=== PATIENT | male | born 1975 | race Caucasian/White ===

== ENCOUNTER 2020-01-20 18:36 | Emergency (ER) | payer SELFPAY ==
[2020-01-20 18:45] VITALS: BP 132/92; PULSE 77; RESP 16; TEMP 36.3; O2SAT 97; BMI 35.3
--- NOTE | 2020-01-20 19:04 | XRR_ITS ---
PROCEDURE INFORMATION: Exam: XR Right Hand Exam date and time: 01/20/2020 7:48 PM Age: 44 years old Clinical indication: Injury or trauma; Fall; Blunt trauma (contusions or hematomas); Hand; Right TECHNIQUE: Imaging protocol: XR Right hand. Views: 3 or more views. COMPARISON: No relevant prior studies available. FINDINGS: Bones/joints: osseous structures of the hand are without an acute process. Distal radioulnar joint and radiocarpal joints grossly normal. Carpus without fracture. Metacarpals and phalangeal without fracture or dislocation. No erosive changes or periarticular calcifications. Corticated ossific density at the base of the 5th metacarpal. 5 mm. Mild degenerative changes 1st metacarpophalangeal joint Soft tissues: See Bones/joints finding. XR/XR hand RT min 3V* [id number] IMPRESSION: No acute process.
--- NOTE | 2020-01-20 19:04 | W.ED.EXTPRO ---
HPI - Extremity Problem General: Chief complaint: Extremity Injury, Upper Stated complaint: right hand injury Time Seen by Provider: 01/20/20 18:58 Source: patient Mode of arrival: ambulatory Limitations: no limitations History of Present Illness: HPI Narrative: Patient reports hitting his right hand against a motor bike yesterday when he slipped and fell. Patient came in due to weakness in the hand and tenderness in the dorsal right hand. Patient has swelling and ecchymosis to the hand. Review of Systems General: Reports: 10 or more systems reviewed and unremarkable except in HPI and below Musc: Reports: other (Right hand injury) Physical Exam Const: COMMON NORMALS: no acute distress and patient oriented x3 GENERAL APPEARANCE: cooperative HENMT: COMMON NORMALS: normocephalic and Normal external nose present HEAD & SCALP: normal to inspection and normocephalic NOSE: Normal external nose present Eye: GENERAL EYE: appearance normal, both eyes and all related structures Neck/C-Spine: COMMON NORMALS: full ROM Chest: COMMONS NORMALS: normal inspection of the chest Resp: COMMON NORMALS: normal respiratory effort EFFORT & INSPECTION: Yes able to speak in complete sentences Cardio: COMMON NORMALS: regular rate and regular rhythm RATE: regular rate RHYTHM: regular rhythm GI: COMMON NORMALS: non-tender Back/Pelvis: COMMON NORMALS: thoracic and lumbar spine normal to inspection Extremity: COMMON NORMALS: normal to inspection NARRATIVE EXTREMITY EXAM: Swelling and ecchymosis to the dorsal right hand. Normal range of motion. Mild weakness. Neuro: COMMON NORMALS: patient oriented x3 and moves all extremities Psych: COMMON NORMALS: mental status grossly normal and cooperative Skin: COMMON NORMALS: no rashes or lesions noted GENERAL SKIN EXAM: no rashes or lesions noted Course Vital Signs: Vital signs: Vital Signs Temperature 97.3 F L 01/20/20 18:45 Pulse Rate 77 01/20/20 18:45 Respiratory Rate 16 01/20/20 18:45 Blood Pressure 132/92 01/20/20 18:45 Pulse Oximetry 97 01/20/20 18:45 MDM - Extremity (Nontraumatic) MDM Narrative: Medical decision making narrative: Patient comes in today for concerns of injury to the right hand. On exam patient has some swelling and ecchymosis to the dorsal right hand. Patient has some restriction and flexion of the hand. Differential diagnosis includes but not limited to fracture, contusion, sprain. X-ray notes no fracture. Reviewed exam with patient with recommendations for treatment of contusion. Patient reported understanding and agreed to plan. Discharge Plan Discharge Patient Disposition: Home Clinical Impression: Contusion of hand, right Qualifiers: Encounter type: initial encounter Qualified Code(s): S60.221A - Contusion of right hand, initial encounter Condition: Stable Prescriptions: No Action No Known Home Medications RF: 0 Discharge Orders: Discharge Order (Routine); Ordered 01/20/20 Ordered By: Gucci Boyce Discharge Diet: Usual diet Discharge Activity: Increase activity as tolerated Patient Instructions: Contusion in Adults (ED) Activity Restrictions/Additional Instructions: Activity as tolerated. Use ice or heat to the area for comfort. Use acetaminophen and ibuprofen for pain. Follow-up with primary care as needed. I would expect the swelling to resolve over the next 3 to 5 days. As the swelling comes down your strength and movement should improve. Return to the emergency department for new concerns. 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
[2020-01-20 20:05] VITALS: BP 130/86; PULSE 83; RESP 17; TEMP 36.3; O2SAT 97
== END 2020-01-20 20:05 | disposition home or self-care (01) ==
PROVIDERS: Emergency Provider Nurse Practitioner Family
DX: S60.221A Contusion of right hand, initial encounter (principal); W22.09XA Striking against other stationary object, initial encounter
CPT/HCPCS: 12345; 73130; 99281; 99282

== ENCOUNTER 2021-01-06 15:56 | Outpatient (CLI) | payer SELFPAY ==
--- NOTE | 2021-01-06 16:10 | XR_ITS ---
WS: [id number] SHOULDER LEFT TECHNIQUE: 3 views of the left shoulder CLINICAL INFORMATION: PAIN IN LEFT SHOULDER COMPARISON: None. FINDINGS: Normal acromioclavicular joint. Narrowing of the subacromial space. Rotator cuff arthropathy. Normal glenohumeral joint. Acromion is normal in appearance. Normal glenoid. No evidence of acute fracture d islocation. XR/XR shoulder LT min 2V* [id number] IMPRESSION: 1. No acute fractures. 2. Mild degenerative arthritis AC joint with rotator cuff arthropathy.
== END 2021-01-06 15:57 | disposition home or self-care (01) ==
PROVIDERS: Visit Provider Family Medicine
DX: M19.012 Primary osteoarthritis, left shoulder (principal)
CPT/HCPCS: 73030

== ENCOUNTER 2021-08-04 10:31 | Emergency (ER) | payer SELFPAY ==
[2021-08-04 10:35] VITALS: BP 181/116; PULSE 96; RESP 16; TEMP 36.1; O2SAT 98; BMI 35.9
--- NOTE | 2021-08-04 10:47 | ED_ITS ---
HPI - Neck Pain/Injury General: Chief Complaint: Neck Pain/Injury Stated Complaint: fall, neck pain Time Seen by Provider: 08/04/21 10:34 Source: patient Mode of arrival: ambulatory Limitations: no limitations History of Present Illness: 45-year-old male who presents emergency room after slipping and falling in his shop. He did not hit his head he did not lose consciousness his only complaint is that of neck pain. He denies any pain in the wrist arms or legs. No other injury. He states he has hurt his neck in the past he never had any surgery no previous surgeries or MRIs. MD complaint: neck pain Physical Exam Const: COMMON NORMALS: no acute distress GENERAL APPEARANCE: cooperative and comfortable ORIENTATION/CONSCIOUSNESS: Yes awake, Yes oriented to person, Yes oriented to place and Yes oriented to time HENMT: COMMON NORMALS: normocephalic and atraumatic HEAD & SCALP: normocephalic and atraumatic Eye: COMMON NORMALS: Equal, round and reactive pupils present, EOMs intact bilaterally, conjunctivae normal and no scleral icterus CONJUNCTIVA: Yes conjunctivae normal PUPIL: Yes Equal, round and reactive pupils present Neck/C-Spine: COMMON NORMALS: no JVD OTHER: Cervical collar in place. [address] was done patient very stiff neck difficulty with range of motion because of pain. Resp: COMMON NORMALS: normal respiratory effort, No retractions, No use of accessory muscles and clear to auscultation bilaterally AUSCULTATION: clear to auscultation bilaterally Cardio: COMMON NORMALS: no JVD, regular rate, regular rhythm and No murmurs present (Cardio) RATE: regular rate RHYTHM: regular rhythm GI: COMMON NORMALS: Soft to palpation and No hepatosplenomegaly present AUSCULTATION: Yes normoactive bowel sounds PALPATION: Yes Soft to palpation, No Tenderness to palpation present (GI), No Guarding due to palpation present (GI) and Yes No hepatosplenomegaly present Extremity: COMMON NORMALS: normal to inspection, capillary refill normal, no clubbing, cyanosis or edema, no calf tenderness and no pedal edema OTHER: Neurovascularly intact both upper extremities strength 5 of 5 in the hands at the elbow and at the shoulder girdle Neuro: SENSORIUM/ORIENTATION: Yes oriented to person, Yes oriented to place and Yes oriented to time Skin: COMMON NORMALS: no rashes or lesions noted GENERAL SKIN EXAM: no rashes or lesions noted Course Vital Signs: Vital signs: Vital Signs Temperature 97.0 F L 08/04/21 10:35 Pulse Rate 90 08/04/21 10:57 Respiratory Rate 16 08/04/21 10:57 Blood Pressure 141/114 08/04/21 10:57 Pulse Oximetry 97 08/04/21 10:57 MDM - Neck Pain/Injury Medical Decision Making CT of the neck negative cervical collar removed. Patient given morphine ketorolac Norflex and dexamethasone discharged home with hydrocodone diclofenac tizanidine and steroid taper. If no improvement the next 3 to 5 days follow-up with primary care to reevaluate for possible advanced imaging. If worsens return. Lab Data Radiology Impressions Cervical Spine CT 08/04/21 10:47 IMPRESSION: 1. No acute cervical spine fractures are identified. 2. Congenital C6 hemivertebrae. 3. Areas of foraminal stenosis as described above are similar to the study from 2018. Discharge Plan Discharge Patient Disposition: Home Clinical Impression: Strain of neck muscle, Fall Condition: Stable Prescriptions: New hydrocodone-acetaminophen 5-325 mg tablet 1 tab PO Q6H PRN (Reason: pain) Qty: 15 0RF diclofenac sodium 75 mg tablet,delayed release (DR/EC) 75 mg PO Q12H PRN (Reason: pain) Qty: 20 0RF tizanidine 4 mg capsule 4 mg PO Q6H PRN (Reason: muscle spasticity) Qty: 20 0RF Rx Instructions: do not exceed 3 doses per 24 hrs prednisone 20 mg tablet 20 mg PO TID Qty: 15 0RF Rx Instructions: 1 p.o. 3 times 3 days, 1 p.o. twice daily x2 days, 1 p.o. daily x2 days No Action Tylenol Ex Str Rapid Release 500 mg Tablet 1,000 mg PO Q4H PRN (Reason: Pain) 0RF Discharge Orders: Discharge ED (Routine); Ordered 08/04/21 Ordered By: Bertram Bryan Discharge Diet: Usual diet Discharge Activity: Limit activity as instructed Activity Restrictions/Additional Instructions: Limit lifting to no greater than 10 pounds do not lift above shoulder level. If not improving in 3 to 5 days follow-up with your primary care doctor for reevaluation. 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
--- NOTE | 2021-08-04 10:47 | CT_ITS ---
WS: [id number] CT CERVICAL SPINE HISTORY: pain after fall TECHNIQUE: Contiguous 2.5 mm axial imaging performed through the entire cervical spine. Sagittal and coronal reformats also performed. All CT scans at [facility] use at least one of these dose o ptimization techniques: automated exposure control; mA and/or kV adjustment per patient size (include s targeted exams where dose is matched to clinical indication); or iterative reconstruction. DLP: 783.19 mGy.cm COMPARISON: 02/19/2018 Severe S-shaped scoliosis of the cervical spine. Congenital C6 hemivertebral body on the LEFT. Cranio cervical junction is normal. No acute fractures are identified. Facet joint alignment is similar to t he prior examination. Lateral masses of C1 and C2 are aligned. Odontoid is intact. C2-C3: Facet joint arthritis, LEFT greater than RIGHT with mild LEFT foraminal narrowing. C3-C4: Moderate sized RIGHT paracentral and proximal foraminal disc protrusion. Similar to the prior examination. Moderate stenosis of the RIGHT foramen. C4-C5: Asymmetric disc bulging. Deformity of the thecal sac with moderate to severe RIGHT foraminal s tenosis similar to the prior study. C5-C6: Diffuse osteophytic ridging. Deformity of the thecal sac due to the scoliosis. C6-C7: LEFT foraminal stenosis. There may be a small disc protrusion in the LEFT foramen but this is similar to the prior examination. C7-T1: Normal. No soft tissue abnormality. CT/CT cervical spin wo con* [id number] IMPRESSION: 1. No acute cervical spine fractures are identified. 2. Congenital C6 hemivertebrae. 3. Areas of foraminal stenosis as described above are similar to the study fro m 2017.
[2021-08-04 10:57] VITALS: BP 141/114; PULSE 90; RESP 16; O2SAT 97
== END 2021-08-04 12:29 | disposition home or self-care (01) ==
PROVIDERS: Emergency Provider Family Medicine
DX: S16.1XXA Strain of muscle, fascia and tendon at neck level, initial encounter (principal); W18.30XA Fall on same level, unspecified, initial encounter
CPT/HCPCS: 72125; 99281

== ENCOUNTER 2021-11-26 07:29 | Emergency (ER) | payer SELFPAY ==
[2021-11-26 07:42] VITALS: BP 147/96; PULSE 91; RESP 15; TEMP 36.8; O2SAT 96; BMI 35.3
--- NOTE | 2021-11-26 08:03 | XR_ITS ---
WS: [id number] Right shoulder, 3 views, 11/26/2021 Clinical Data: fall, pain Comparison: None. Findings: No fractures or dislocations are seen. The AC joint is normal. The adjacent right clavicle, right sca pula and ribs are normal. The soft tissues are unremarkable. XR/XR shoulder RT min 2V* [id number] Impression: Negative right shoulder.
--- NOTE | 2021-11-26 08:27 | W.ED.EXTPRO ---
HPI - Extremity Problem General: Chief complaint: Extremity Injury, Upper Stated complaint: Shoulder injury, Fall Time Seen by Provider: 11/26/21 07:43 Source: patient Mode of arrival: ambulatory Limitations: no limitations History of Present Illness: 46-year-old male presents emergency room with complaint of right shoulder pain. Patient has had problems with that shoulder in the past 1 point was advised to have surgery he was able to rehab it without going through surgical repair and seems to be doing fairly well. This morning he slipped on some water while he was getting ready to go to work and fell as he fell he reached out and grabbed handle of an oven door in the kitchen. He states he essentially ripped the oven door off of the appliance and has severe right shoulder pain now. He denies striking his head denies loss consciousness he is not on any anticoagulants no other injury. He has difficulty with abduction and extension. MD Complaint: joint pain Onset (ago): minute(s) Pain Consistency: constant Location: right and upper extremity (Shoulder) Quality: sharp Radiation: distal Relieving factors: immobilization Exacerbating factors: range of motion and palpation Associated symptoms: Deny arthralgias, chest pain, fever(s), myalgias, rash or short of breath Review of Systems Const: Denies: fever(s), chills, fatigue or malaise ENMT: Denies: throat pain, ear or mastoid pain, nasal discharge or nasal congestion Card: Denies: chest pain or palpitations Resp: Denies: dyspnea, productive cough or non-productive cough GI: Denies: abdominal pain, nausea, vomiting, hematemesis, coffee ground emesis, diarrhea, constipation, bloating, hematochezia or melena : Denies: flank pain, difficulty urinating, dysuria, urinary frequency or urinary urgency Musc: Reports: joint pain Skin/Breast: Denies: rash PFSH ED PFSH: Medical History (Updated 12/08/21 @ 11:58 by Bertram Bryan DO) No pertinent past medical history Social History (Updated 12/08/21 @ 11:58 by Bertram Bryan DO) Smoking and tobacco status: never smoked Alcohol intake: unknown Physical Exam Const: COMMON NORMALS: no acute distress GENERAL APPEARANCE: cooperative and comfortable ORIENTATION/CONSCIOUSNESS: Yes awake, Yes oriented to person, Yes oriented to place and Yes oriented to time HENMT: COMMON NORMALS: normocephalic, atraumatic and hearing grossly normal bilaterally HEAD & SCALP: normocephalic and atraumatic Resp: COMMON NORMALS: normal respiratory effort, No retractions, No use of accessory muscles and clear to auscultation bilaterally AUSCULTATION: clear to auscultation bilaterally Cardio: COMMON NORMALS: regular rate, regular rhythm and No murmurs present (Cardio) RATE: regular rate RHYTHM: regular rhythm GI: COMMON NORMALS: Soft to palpation and No hepatosplenomegaly present AUSCULTATION: Yes normoactive bowel sounds PALPATION: Yes Soft to palpation, No Tenderness to palpation present (GI), No Guarding due to palpation present (GI) and Yes No hepatosplenomegaly present Extremity: COMMON NORMALS: normal to inspection, capillary refill normal, no clubbing, cyanosis or edema, no calf tenderness and no pedal edema OTHER: No pain or discomfort with range of motion at the left wrist or left elbow. Pain with even minimal attempts at external rotation at the shoulder. Unable to AB duct or flex. Neuro: SENSORIUM/ORIENTATION: Yes oriented to person, Yes oriented to place and Yes oriented to time Skin: COMMON NORMALS: no rashes or lesions noted GENERAL SKIN EXAM: no rashes or lesions noted Course Vital Signs: Vital signs: Vital Signs Temperature 98.2 F 11/26/21 07:42 Pulse Rate 91 11/26/21 07:42 Respiratory Rate 15 11/26/21 07:42 Blood Pressure 147/96 11/26/21 07:42 Pulse Oximetry 96 11/26/21 07:42 Oxygen Delivery Me thod 11/26/21 07:42 MDM - Extremity (Nontraumatic) Medical Decision Making Shoulder immobilizer pain medications follow-up with Ortho set up outpatient MRI of the left shoulder. Medical Records I reviewed the patient's medical records. Lab Data I reviewed the patient's lab results. Radiology Impressions Shoulder X-Ray 11/26/21 08:03 Impression: Negative right shoulder. Discharge Plan Discharge Patient Disposition: Home Clinical Impression: Rotator cuff injury Condition: Stable Prescriptions: New hydrocodone-acetaminophen 5-325 mg tablet 1 tab PO Q6H PRN (Reason: pain) Qty: 15 0RF diclofenac sodium 75 mg tablet,delayed release (DR/EC) 75 mg PO Q12H PRN (Reason: pain) Qty: 20 0RF Discontinued hydrocodone-acetaminophen 5-325 mg tablet 1 tab PO Q6H PRN (Reason: pain) Qty: 15 0RF diclofenac sodium 75 mg tablet,delayed release (DR/EC) 75 mg PO Q12H PRN (Reason: pain) Qty: 20 0RF tizanidine 4 mg capsule 4 mg PO Q6H PRN (Reason: muscle spasticity) Qty: 20 0RF Rx Instructions: do not exceed 3 doses per 24 hrs No Action Tylenol Ex Str Rapid Release 500 mg Tablet 1,000 mg PO Q4H PRN (Reason: Pain) prednisone 20 mg tablet 20 mg PO TID Qty: 15 0RF Rx Instructions: 1 p.o. 3 times 3 days, 1 p.o. twice daily x2 days, 1 p.o. daily x2 days Discharge Orders: Discharge ED (Routine); Ordered 11/26/21 Ordered By: Bertram Bryan Discharge Diet: Usual diet Discharge Activity: Limit activity as instructed Patient Instructions: Opioid Safety Activity Restrictions/Additional Instructions: No use of the right arm until cleared by orthopedics. Case management will make arrangements for follow-up with orthopedics and for an outpatient MRI. Use sling for comfort until there is improvement or instructed otherwise by orthopedics. 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
[2021-11-26] MEDS: HYDROcodone-acetaminophen 5-325 mg Tablet 1 TAB PO (08:53)
--- NOTE | 2021-11-26 16:16 | DCPLANNER ---
Addendum entered by Susan Clark 01/14/22 12:23: Patient had a follow up appointment scheduled with ortho - patient did attend appointment. Addendum entered by Susan Clark 12/02/21 14:01: Patient has a follow up appointment scheduled for Wednesday, December 08, 2021 at 8:00 with Stanley at ortho. Clinic will call patient with appointment information. Original Note: depot manager had message to schedule a follow up appointment for patient with ortho and an outpatient MRI for patient. depot manager faxed signed order to centralized scheduling, who will call patient with appointment information. depot manager sent patients information to the front office staff at ortho. Patients information will be printed and reviewed. Clinic will call patient with appointment information.
== END 2021-11-26 09:05 | disposition home or self-care (01) ==
PROVIDERS: Emergency Provider Family Medicine
DX: S46.001A Unspecified injury of muscle(s) and tendon(s) of the rotator cuff of right shoulder, initial encounter (principal); W01.0XXA Fall on same level from slipping, tripping and stumbling without subsequent striking against object, initial encounter
CPT/HCPCS: 73030; 99283

== ENCOUNTER → 2021-12-08 08:10 | Outpatient (BNVA) | payer SELFPAY | PROVIDERS: Referring Provider Family Medicine; Visit Provider Nurse Practitioner Family | DX: S49.91XA Unspecified injury of right shoulder and upper arm, initial encounter (principal); X58.XXXA Exposure to other specified factors, initial encounter | CPT/HCPCS: 73030 ==

== ENCOUNTER 2022-07-24 12:30 | Outpatient (CLI) | payer SELFPAY ==
--- NOTE | 2022-07-24 12:36 | XRR_ITS ---
PROCEDURE INFORMATION: Exam: XR Left Foot Exam date and time: 07/24/2022 12:37 PM Age: 46 years old Clinical indication: Pain; Foot; Left; Additional info: Left foot pain TECHNIQUE: Imaging protocol: Radiologic exam of the left foot. Views: 3 or more views. COMPARISON: No relevant prior studies available. FINDINGS: Bones/joints: Normal variant bipartite lateral sesamoid. There is a benign bipartite os peroneus accessory ossicle. There is an enthesophyte off the os calcis at the distal Achilles tendon insertion site. There are marginal osteophyte formations across the medial aspects of the articulations between the medial cuneiform/base of the 1st metatarsal and navicular/medial cuneiform. Soft tissues: There are benign-appearing soft tissue calcifications. XR/XR foot LT min 3V* [id number] IMPRESSION: There are osteoarthritic changes across the medial aspects of the articulations between the medial cuneiform/base of the 1st metatarsal and navicular/medial cuneiform.
== END 2022-07-24 12:31 | disposition home or self-care (01) ==
PROVIDERS: Visit Provider Registered Nurse Neonatal Intensive Care
DX: M79.672 Pain in left foot (principal); S99.922A Unspecified injury of left foot, initial encounter; X58.XXXA Exposure to other specified factors, initial encounter
CPT/HCPCS: 73630

== ENCOUNTER 2023-01-06 13:38 | Emergency (ER) | payer SELFPAY ==
--- NOTE | 2023-01-06 13:40 | XR_ITS ---
WS: [id number] Exam: XR elbow RT min 3V* [id number] Date/Time of Exam: 01/06/2023 1:55 PM Reason For Exam: injury There appears to be a small cortical fracture involving the lateral margin of the radial head. No sig nificant displacement. No other fractures are identified. There may be a joint effusion. IMPRESSION: 1. Probable small cortical fracture along the lateral margin of the radial head without displacement. Questionable joint effusion.
[2023-01-06 13:51] VITALS: BP 177/109; PULSE 94; RESP 17; TEMP 36.6; O2SAT 96; BMI 35.3
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
[2023-01-06 15:47] VITALS: RESP 17
--- NOTE | 2023-01-09 08:10 | PC.SOCIAL ---
Ortho Referral Referral message sent to clinic at this time. Clinic to contact patient with appt date/time.
== END 2023-01-06 15:50 | disposition home or self-care (01) ==
PROVIDERS: Emergency Provider Physician Assistant
DX: S42.434A Nondisplaced fracture (avulsion) of lateral epicondyle of right humerus, initial encounter for closed fracture (principal); W22.8XXA Striking against or struck by other objects, initial encounter
CPT/HCPCS: 29125; 73080; 99283

== ENCOUNTER → 2024-01-23 16:33 | Outpatient (BNVA) | payer SELFPAY | PROVIDERS: Visit Provider Emergency Medicine | DX: R50.9 Fever, unspecified (principal) | CPT/HCPCS: 87400; 87426 ==

== ENCOUNTER → 2024-03-04 16:52 | Outpatient (BNVA) | payer SELFPAY | PROVIDERS: Visit Provider Family Medicine | DX: J02.9 Acute pharyngitis, unspecified (principal) | CPT/HCPCS: 87071; 87880 ==

== ENCOUNTER → 2024-05-13 14:47 | Outpatient (BNVA) | payer SELFPAY | DX: M25.511 Pain in right shoulder (principal) | CPT/HCPCS: 73030 ==

== ENCOUNTER 2024-09-11 11:25 | Inpatient (IN) | payer SELFPAY ==
[2024-09-11 11:38] VITALS: BP 123/83; PULSE 67; RESP 16; TEMP 36.3; O2SAT 98
--- NOTE | 2024-09-11 12:23 | CTR_ITS ---
PROCEDURE INFORMATION: Exam: CT Cervical Spine Without Contrast Exam date and time: 09/11/2024 12:43 PM Age: 48 years old Clinical indication: Injury or trauma; Blunt trauma; Injury date: 09/10/24; Injury details: Fall x last night hitting left posterior head on concrete. C. O headache TECHNIQUE: Imaging protocol: Computed tomography of the cervical spine without contrast. Radiation optimization: All CT scans at this facility use at least one of these dose optimization techniques: automated exposure control; mA and/or kV adjustment per patient size (includes targeted exams where dose is matched to clinical indication); or iterative reconstruction. COMPARISON: CT cervical spin wo con* [id number] 08/04/2021 11:15 AM RADIATION DOSE METRICS: Total DLP (mGy-cm): 274.8 FINDINGS: Bones/joints: No acute compression deformity. Stable appearance to C6 left [place] vertebra. Stable levocurvature of the cervical spine centered at the C6 level C2-C3: Spinal canal is patent. Moderate left neuroforaminal narrowing secondary to uncovertebral and facet hypertrophy. C3-C4: Broad-based disc osteophyte complex with [id number] central canal stenosis. Mild left and moderate right neuroforaminal narrowing secondary to uncovertebral and facet hypertrophy. C4-C5: Spinal canal is patent. Moderate right and mild left neuroforaminal narrowing secondary to uncovertebral and facet hypertrophy. C5-C6: Spinal canal is patent. Mild left neuroforaminal narrowing secondary to uncovertebral and facet hypertrophy. C6-C7: Spinal canal is patent. Mild bilateral neuroforaminal narrowing secondary to uncovertebral and facet hypertrophy. C7-T1: Spinal canal is patent. Mild left neuroforaminal narrowing secondary to uncovertebral and facet hypertrophy. Lungs: Lung apices are normal. Soft tissues: Asymmetric appearance of the piriform sinuses with relative effacement of the left side. Underlying mucosal lesion cannot be excluded. Recommend correlation with direct visualization. CT/CT cervical spin wo con* [id number] IMPRESSION: 1. No acute bony abnormality. If symptoms persist, consider further evaluation with MRI, if there are no contraindications to obtaining a MRI scan. 2. Asymmetric appearance of the piriform sinuses with relative effacement of the left side. Underlying mucosal lesion cannot be excluded. Recommend correlation with direct visualization.
--- NOTE | 2024-09-11 12:24 | CTR_ITS ---
PROCEDURE INFORMATION: Exam: CT Head Without Contrast Exam date and time: 09/11/2024 12:43 PM Age: 48 years old Clinical indication: Injury or trauma; Blunt trauma (contusions or hematomas); Injury date: 09/10/24; Injury details: Fall x last night hitting left posterior head on concrete. C. O headache TECHNIQUE: Imaging protocol: Computed tomography of the head without contrast. Radiation optimization: All CT scans at this facility use at least one of these dose optimization techniques: automated exposure control; mA and/or kV adjustment per patient size (includes targeted exams where dose is matched to clinical indication); or iterative reconstruction. COMPARISON: None RADIATION DOSE METRICS: Total DLP (mGy-cm): 274.8 FINDINGS: Brain: Mild nonspecific white matter low attenuation which may be related to microvascular ischemic changes. No acute confluent lobar ischemic infarct. No acute intracranial hemorrhage. Cerebral ventricles: The ventricles and sulci are normal in size and shape for the patient's stated age. Paranasal sinuses: No fluid levels. Mastoid air cells: Visualized mastoid air cells are well aerated. Bones: No acute calvarial fracture. Soft tissues: Visualized soft tissues are unremarkable. CT/CT head wo con* [id number] IMPRESSION: No acute intracranial abnormality. If symptoms persist, consider further evaluation with MRI, if there are no contraindications to obtaining a MRI scan.
--- NOTE | 2024-09-11 12:40 | ED_ITS ---
Documented by User: Bertram Bryan DO 09/12/24 06:46 HPI - Fall 2 General: Chief Complaint: Fall Stated Complaint: fell, hit head, dizzy, confusion Time Seen by Provider: 09/11/24 12:23 History of Present Illness: 48-year-old male presents to the emergen cy room with complaints of a fall states he fell when he slipped in the garage floor on some oil or water and hit his head. He has been dizzy somewhat confused he denies loss of consciousness family member said related to the staff that he had been drinking heavily and took a large number of pills. He denied any suicidal ideation. Associated symptoms-after fall: Denies abdominal pain, chest pain or neck pain Related Data Home Medications ?Medication ?Instructions ?Recorded ?Confirmed diphenhydramine 25 1 tab PO Q4H PRN Sleep 09/1109/11/24 mg-acetaminophen 500 mg tablet (Tylenol PM Extra Strength) methocarbamol 750 mg tablet 750 mg PO TID PRN Muscle S pasm 09/11/24 09/11/24 Previous Rx's ?Medication ?Instructions ?Recorded diclofenac sodium 3 % topical gel 1 applic topical BID PRN muscle 05/13/24 pain, tension #100 grams diclofenac sodium 50 mg 50 mg PO BID pain #14 tabs 0 05/13/24 tablet,delayed release Allergies Allergy/AdvReac Type Severity Reaction Status Date / Time No Known Allergies Allergy Verified 05/13/24 14:15 Review of Systems 2 Const: Denies: fever(s) or chills Card: Denies: chest pain Resp: Denies: dyspnea GI: Denies: abdominal pain : Denies: dysuria, urinary frequency or urinary urgency Musc: Denies: neck pain or back pain Skin/Breast: Denies: rash PFSH ED 2 PFSH: Medical History No pertinent past medical history Social History Smoking and tobacco/nicotine status: unknown if used tobacco/nicotine Alcohol intake: unknown Physical Exam 2 Const: GENERAL APPEARANCE: cooperative ORIENTATION/CONSCIOUSNESS: Yes awake, Yes oriented to person, Yes oriented to place and Yes oriented to time HENMT: COMMON NORMALS: normocephalic, atraumatic and hearing grossly normal bilaterally HEAD & SCALP: normocephalic and atraumatic Resp: COMMON NORMALS: normal respiratory effort, No retractions, No use of accessory muscles and clear to auscultation bilaterally AUSCULTATION: clear to auscultation bilaterally Cardio: COMMON NORMALS: regular rate, regular rhythm and No murmurs present (Cardio) RATE: regular rate RHYTHM: regular rhythm GI: COMMON NORMALS: Soft to palpation and No hepatosplenomegaly present A USCULTATION: Yes normoactive bowel sounds PALPATION: Yes Soft to palpation, No Tenderness to palpation present (GI), No Guarding due to palpation present (GI) and Yes No hepatosplenomegaly present Extremity: COMMON NORMALS: normal to inspection, capillary refill normal, no clubbing, cyanosis or edema, no calf tenderness and no pedal edema Neuro: SENSORIUM/ORIENTATION: Yes oriented to person, Yes oriented to place and Yes oriented to time Skin: COMMON NORMALS: no rashes or lesions noted GENERAL SKIN EXAM: no rashes or lesions noted Course 2 Vital Signs: Vital signs: Vital Signs Temperature 98.4 F 09/12/24 03:55 Pulse Rate 83 09/12/24 03:55 Respiratory Rate 18 09/12/24 03:55 Blood Pressure 155/96 09/12/24 03:55 Pulse Oximetry 98 09/12/24 03:55 Oxygen Delivery Me thod Room Air 09/12/24 03:55 MDM - Fall Medical Decision Making Patient came in stating initially fell. Family came and he been drinking last night he had made several comments about harming himself they think he took a large number of pills he evidently made comments of harming himself with a gun they were spoken to. They remove the gun from his possession. Discussed this with the patient he admits that these things occurred has a different perspective on them. Advised him I think at this point we probably do need to admit him on a 96-hour hold. CT of the head and neck were negative. Patient had refused lab work earlier. We did give him Ativan as he appeared to have fairly significant tremor and is quite agitated after told that he was going to be on a 96-hour hold. Talk to psych they do not have beds available at this time staff is continuing to work on transfer. Care signed out to Dr. law at change of shift. See final notes for diagnosis and disposition. Patient refuses lab work Care assumed from Dr. Bryan. Case discussed with Dr. Bustamante and the patient was admitted to psych unit. Lab Data 09/11/24 14:33 09/11/24 14:33 Radiology Impressions Cervical Spine CT 09/11/24 12:23 IMPRESSION: 1. No acute bony abnormality. If symptoms persist, consider further evaluation with MRI, if there are no contraindications to obtaining a MRI scan. 2. Asymmetric appearance of the piriform sinuses with relative effacement of the left side. Underlying mucosal lesion cannot be excluded. Recommend correlation with direct visualization. Head CT 09/11/24 12:24 IMPRESSION: No acute intracranial abnormality. If symptoms persist, consider further evaluation with MRI, if there are no contraindications to obtaining a MRI scan. Laboratory Results WBC 6.17 10^3/uL (3.29-11.43) 09/11/24 14:33 RBC 4.76 10^6/uL (3.85-5.65) 09/11/24 14:33 Hgb 15.00 g/dL (11.27-16.99) 09/11/24 14:33 Hct 43.2 % (37-53) 09/11/24 14:33 MCV 90.8 fl (82-101) 09/11/24 14:33 MCH 31.5 pg (27-33) 09/11/24 14:33 MCHC 34.7 g/dL (30-55) 09/11/24 14:33 RDW 12.3 % (12.1-15.1) 09/11/24 14:33 Plt Count 209 10^3/cmm (157-399) 09/11/24 14:33 MPV 10.0 fL (7.4-10.4) 09/11/24 14:33 Neut % (Auto) 56.6 % 09/11/24 14:33 Lymph % (Auto) 31.4 % 09/11/24 14:33 [place] % (Auto) 8.9 % 09/11/24 14:33 Eos % (Auto) 1.5 % 09/11/24 14:33 Baso % (Auto) 1.1 % 09/11/24 14:33 Neut # (Auto) 3.49 10^3/uL (1.8-7.7) 09/11/24 14:33 Lymph # (Auto) 1.9 10^3/uL (0.8-4.8) 09/11/24 14:33 [place] # (Auto) 0.6 10^3/uL (0.2-0.9) 09/11/24 14:33 Eos # (Auto) 0.1 10^3/uL (0.0-0.8) 09/11/24 14:33 Baso # (Auto) 0.1 10^3/uL (0.0-0.1) 09/11/24 14:33 Nucleated RBC % (auto) 0 % 09/11/24 14:33 Nucleated RBCs # 0.0 /100WBC 09/11/24 14:33 Sodium 133 mmol/L (136-145) L 09/11/24 14:33 Potassium 4.6 mmol/L (3.5-5.1) 09/11/24 14:33 Chloride 95 mmol/L (98-107) L 09/11/24 14:33 Carbon Dioxide 22 mmol/L (22-29) 09/11/24 14:33 Anion Gap 20.6 (5-19) H 09/11/24 14:33 BUN 13 mg/dL (6-20) 09/11/24 14:33 Creatinine 0.8 mg/dL (0.7-1.2) 09/11/24 14:33 GFR Calculation 102.7 mL/min (90-130) 09/11/24 14:33 Glucose 319 mg/dL (65-115) H 09/11/24 14:33 Calculated Osmolality 288 mOsm/kg (285-295) 09/11/24 14:33 Calcium 9.7 mg/dL (8.5-10.5) 09/11/24 14:33 Total Bilirubin 0.5 mg/dL (0.15-1.2) 09/11/24 14:33 AST 39 U/L (0-40) 09/11/24 14:33 ALT 34 U/L (0-41) 09/11/24 14:33 Alkaline Phosphatase 75 U/L (40-130) 09/11/24 14:33 Total Protein 7.6 g/dL (6.6-8.7) 09/11/24 14:33 Albumin 4.1 g/dL (3.5-5.2) 09/11/24 14:33 Globulin 3.5 g/dL (1.3-4.6) 09/11/24 14:33 Urine Color Yellow (Yellow) 09/11/24 17:51 Urine Appearance Clear (CLEAR) 09/11/24 17:51 Urine pH 7.0 (5-7) 09/11/24 17:51 Ur Specific [place] 1.009 (1.005-1.030) 09/11/24 17:51 Urine Protein Negative (Negative) 09/11/24 17:51 Urine Glucose (UA) 3+ (Normal) H 09/11/24 17:51 Urine Ketones 1+ (Negative) H 09/11/24 17:51 Urine Blood Negative (Negative) 09/11/24 17:51 Urine Nitrate Negative (Negative) 09/11/24 17:51 Urine Bilirubin Negative (Negative) 09/11/24 17:51 Urine Urobilinogen 0.2 mg/dL (Negative) 09/11/24 17:51 Ur Leukocyte Esterase Negative (Negative) 09/11/24 17:51 Urine RBC 0-2 /hpf (0-2) 09/11/24 17:51 Urine WBC 0-5 /hpf (0-5) 09/11/24 17:51 Ur Squamous Epith Cells 0-5 /hpf (0-5) 09/11/24 17:51 Amorphous Sediment Not Reportable 09/11/24 17:51 Urine Bacteria None seen /hpf (NONE) 09/11/24 17:51 Hyaline Casts 0-4 /lpf H 09/11/24 17:51 Salicylates < 0.3 mg/dL (3-10) L 09/11/24 14:33 Urine Opiates Screen Negative ng/mL (Negative) 09/11/24 17:51 Acetaminophen < 5.0 ug/mL (10-30) L 09/11/24 14:33 Ur Barbiturates Screen Negative ng/mL (Negative) 09/11/24 17:51 Ur Phencyclidine Scrn Negative ng/mL (Negative) 09/11/24 17:51 Ur Amphetamines Screen Negative ng/mL (Negative) 09/11/24 17:51 U Benzodiazepines Scrn Negative ng/mL (Negative) 09/11/24 17:51 Urine Cocaine Screen Negative ng/mL (Negative) 09/11/24 17:51 U Marijuana (THC) Screen Negative ng/mL (Negative) 09/11/24 17:51 Ethyl Alcohol < 10 mg/dL (0-10) 09/11/24 14:33 Influenza A (PCR) Negative (Negative) 09/11/24 17:51 Influenza Type B (PCR) Negative (Negative) 09/11/24 17:51 RSV (PCR) Negative (Negative) 09/11/24 17:51 SARS-CoV-2 (PCR) Negative (Negative) 09/11/24 17:51 Discharge Plan Discharge Patient Disposition: Admitted As Inpatient Admit Provider: Luis Bustamante Clinical Impression: Suicidal ideation Condition: Stable Coding Level of Care Code ED Education Nurse for Chg Fwd Documented by User: Harry Arellano DO 09/11/24 18:47 HPI - Fall 2 General: Chief Complaint: Fall Stated Complaint: fell, hit head, dizzy, confusion Time Seen by Provider: 09/11/24 12:23 Related Data Home Medications ?Medication ?Instructions ?Recorded ?Confirmed diphenhydramine 25 1 tab PO Q4H PRN Sleep 09/1109/11/24 mg-acetaminophen 500 mg tablet (Tylenol PM Extra Strength) methocarbamol 750 mg tablet 750 mg PO TID PRN Muscle S pasm 09/11/24 09/11/24 Previous Rx's ?Medication ?Instructions ?Recorded diclofenac sodium 3 % topical gel 1 applic topical BID PRN muscle 05/13/24 pain, tension #100 grams diclofenac sodium 50 mg 50 mg PO BID pain #14 tabs 0 05/13/24 tablet,delayed release Allergies Allergy/AdvReac Type Severity Reaction Status Date / Time No Known Allergies Allergy Verified 05/13/24 14:15 PFSH ED 2 PFSH: Medical History No pertinent past medical history Social History Smoking and tobacco/nicotine status: unknown if used tobacco/nicotine Alcohol intake: unknown Course 2 Vital Signs: Vital signs: Vital Signs Temperature 98.4 F 09/12/24 03:55 Pulse Rate 83 09/12/24 03:55 Respiratory Rate 18 09/12/24 03:55 Blood Pressure 155/96 09/12/24 03:55 Pulse Oximetry 98 09/12/24 03:55 Oxygen Delivery Me thod Room Air 09/12/24 03:55 MDM - Fall Medical Decision Making Patient refuses lab work Care assumed from Dr. Bryan. Case discussed with Dr. Bustamante and the patient was admitted to psych unit. Lab Data 09/11/24 14:33 09/11/24 14:33 Radiology Impressions Cervical Spine CT 09/11/24 12:23 IMPRESSION: 1. No acute bony abnormality. If symptoms persist, consider further evaluation with MRI, if there are no contraindications to obtaining a MRI scan. 2. Asymmetric appearance of the piriform sinuses with relative effacement of the left side. Underlying mucosal lesion cannot be excluded. Recommend correlation with direct visualization. Head CT 09/11/24 12:24 IMPRESSION: No acute intracranial abnormality. If symptoms persist, consider further evaluation with MRI, if there are no contraindications to obtaining a MRI scan. Laboratory Results WBC 6.17 10^3/uL (3.29-11.43) 09/11/24 14:33 RBC 4.76 10^6/uL (3.85-5.65) 09/11/24 14:33 Hgb 15.00 g/dL (11.27-16.99) 09/11/24 14:33 Hct 43.2 % (37-53) 09/11/24 14:33 MCV 90.8 fl (82-101) 09/11/24 14:33 MCH 31.5 pg (27-33) 09/11/24 14:33 MCHC 34.7 g/dL (30-55) 09/11/24 14:33 RDW 12.3 % (12.1-15.1) 09/11/24 14:33 Plt Count 209 10^3/cmm (157-399) 09/11/24 14:33 MPV 10.0 fL (7.4-10.4) 09/11/24 14:33 Neut % (Auto) 56.6 % 09/11/24 14:33 Lymph % (Auto) 31.4 % 09/11/24 14:33 [place] % (Auto) 8.9 % 09/11/24 14:33 Eos % (Auto) 1.5 % 09/11/24 14:33 Baso % (Auto) 1.1 % 09/11/24 14:33 Neut # (Auto) 3.49 10^3/uL (1.8-7.7) 09/11/24 14:33 Lymph # (Auto) 1.9 10^3/uL (0.8-4.8) 09/11/24 14:33 [place] # (Auto) 0.6 10^3/uL (0.2-0.9) 09/11/24 14:33 Eos # (Auto) 0.1 10^3/uL (0.0-0.8) 09/11/24 14:33 Baso # (Auto) 0.1 10^3/uL (0.0-0.1) 09/11/24 14:33 Nucleated RBC % (auto) 0 % 09/11/24 14:33 Nucleated RBCs # 0.0 /100WBC 09/11/24 14:33 Sodium 133 mmol/L (136-145) L 09/11/24 14:33 Potassium 4.6 mmol/L (3.5-5.1) 09/11/24 14:33 Chloride 95 mmol/L (98-107) L 09/11/24 14:33 Carbon Dioxide 22 mmol/L (22-29) 09/11/24 14:33 Anion Gap 20.6 (5-19) H 09/11/24 14:33 BUN 13 mg/dL (6-20) 09/11/24 14:33 Creatinine 0.8 mg/dL (0.7-1.2) 09/11/24 14:33 GFR Calculation 102.7 mL/min (90-130) 09/11/24 14:33 Glucose 319 mg/dL (65-115) H 09/11/24 14:33 Calculated Osmolality 288 mOsm/kg (285-295) 09/11/24 14:33 Calcium 9.7 mg/dL (8.5-10.5) 09/11/24 14:33 Total Bilirubin 0.5 mg/dL (0.15-1.2) 09/11/24 14:33 AST 39 U/L (0-40) 09/11/24 14:33 ALT 34 U/L (0-41) 09/11/24 14:33 Alkaline Phosphatase 75 U/L (40-130) 09/11/24 14:33 Total Protein 7.6 g/dL (6.6-8.7) 09/11/24 14:33 Albumin 4.1 g/dL (3.5-5.2) 09/11/24 14:33 Globulin 3.5 g/dL (1.3-4.6) 09/11/24 14:33 Urine Color Yellow (Yellow) 09/11/24 17:51 Urine Appearance Clear (CLEAR) 09/11/24 17:51 Urine pH 7.0 (5-7) 09/11/24 17:51 Ur Specific [place] 1.009 (1.005-1.030) 09/11/24 17:51 Urine Protein Negative (Negative) 09/11/24 17:51 Urine Glucose (UA) 3+ (Normal) H 09/11/24 17:51 Urine Ketones 1+ (Negative) H 09/11/24 17:51 Urine Blood Negative (Negative) 09/11/24 17:51 Urine Nitrate Negative (Negative) 09/11/24 17:51 Urine Bilirubin Negative (Negative) 09/11/24 17:51 Urine Urobilinogen 0.2 mg/dL (Negative) 09/11/24 17:51 Ur Leukocyte Esterase Negative (Negative) 09/11/24 17:51 Urine RBC 0-2 /hpf (0-2) 09/11/24 17:51 Urine WBC 0-5 /hpf (0-5) 09/11/24 17:51 Ur Squamous Epith Cells 0-5 /hpf (0-5) 09/11/24 17:51 Amorphous Sediment Not Reportable 09/11/24 17:51 Urine Bacteria None seen /hpf (NONE) 09/11/24 17:51 Hyaline Casts 0-4 /lpf H 09/11/24 17:51 Salicylates < 0.3 mg/dL (3-10) L 09/11/24 14:33 Urine Opiates Screen Negative ng/mL (Negative) 09/11/24 17:51 Acetaminophen < 5.0 ug/mL (10-30) L 09/11/24 14:33 Ur Barbiturates Screen Negative ng/mL (Negative) 09/11/24 17:51 Ur Phencyclidine Scrn Negative ng/mL (Negative) 09/11/24 17:51 Ur Amphetamines Screen Negative ng/mL (Negative) 09/11/24 17:51 U Benzodiazepines Scrn Negative ng/mL (Negative) 09/11/24 17:51 Urine Cocaine Screen Negative ng/mL (Negative) 09/11/24 17:51 U Marijuana (THC) Screen Negative ng/mL (Negative) 09/11/24 17:51 Ethyl Alcohol < 10 mg/dL (0-10) 09/11/24 14:33 Influenza A (PCR) Negative (Negative) 09/11/24 17:51 Influenza Type B (PCR) Negative (Negative) 09/11/24 17:51 RSV (PCR) Negative (Negative) 09/11/24 17:51 SARS-CoV-2 (PCR) Negative (Negative) 09/11/24 17:51 All radiology interpretation(s) finalized by discharge Discharge Plan Discharge Patient Disposition: Admitted As Inpatient Admit Provider: Luis Bustamante Clinical Impression: Suicidal ideation Condition: Stable Coding Level of Care Code ED Education Nurse for Isai [place]
--- NOTE | 2024-09-11 13:00 | PC.NURSE ---
emptied contents of urinal into cup and substance was clear and cold. specimen was disposed of
[2024-09-11] MEDS: LORazepam 2 mg Tablet PO (14:01)
[2024-09-11 14:53] LABS: Basophils # 0.1 10^3/uL (0.0-0.1); Basophils % 1.1 %; Eosinophils # 0.1 10^3/uL (0.0-0.8); Eosinophils % 1.5 %; Hematocrit 43.2 % (37-53); Lymphocytes # 1.9 10^3/uL (0.8-4.8); Lymphocytes % 31.4 %; Mean Corpuscular HGB Conc 34.7 g/dL (30-55); Mean Corpuscular Hemoglobin 31.5 pg (27-33); Mean Corpuscular Volume 90.8 fl (82-101); Monocytes # 0.6 10^3/uL (0.2-0.9); Monocytes % 8.9 %; Neutrophils # 3.49 10^3/uL (1.8-7.7); Neutrophils % 56.6 %; Nucleated Red Blood Cells % 0 %; Platelet Count 209 10^3/cmm (157-399); Red Blood Count 4.76 10^6/uL (3.85-5.65); Red Cell Distribution Width 12.3 % (12.1-15.1); White Blood Count 6.17 10^3/uL (3.29-11.43)
[2024-09-11 15:13] LABS: Alanine Aminotransferase 34 U/L (0-41); Albumin Level 4.1 g/dL (3.5-5.2); Alkaline Phosphatase 75 U/L (40-130); Anion Gap 20.6 (5-19); Aspartate Amino Transferase 39 U/L (0-40); Blood Urea Nitrogen 13 mg/dL (6-20); Calcium 9.7 mg/dL (8.5-10.5); Carbon Dioxide 22 mmol/L (22-29); Chloride 95 mmol/L (98-107); Creatinine Clr Calc Pharmacy 158.1795; Globulin 3.5 g/dL (1.3-4.6); Glomerular Filtration Rate 102.7 mL/min (90-130); Glucose 319 mg/dL (65-115); Osmolality Calculated 288 mOsm/kg (285-295); Potassium 4.6 mmol/L (3.5-5.1); Sodium 133 mmol/L (136-145); Total Bilirubin 0.5 mg/dL (0.15-1.2); Total Protein 7.6 g/dL (6.6-8.7)
[2024-09-11 15:14] LABS: Acetaminophen < 5.0 ug/mL (10-30); Alcohol Level < 10 mg/dL (0-10); Salicylate < 0.3 mg/dL (3-10)
[2024-09-11 17:53] VITALS: PULSE 82; RESP 16; O2SAT 98
[2024-09-11 18:00] LABS: Bilirubin Urine Negative (Negative); Blood Urine Negative (Negative); Glucose Urine UA 3+ (Normal); Ketones Urine 1+ (Negative); Leukocyte Esterase Urine Negative (Negative); Nitrate Urine Negative (Negative); Protein Urine Negative (Negative); Specific Gravity, Urine 1.009 (1.005-1.030); Urine Appearance Clear (CLEAR); Urine Color Yellow (Yellow); Urobilinogen Urine 0.2 mg/dL (Negative)
[2024-09-11 18:02] LABS: Add Urine Microscopic? YES; Bacteria Urine None Seen /hpf; Hyaline Casts Urine 0-4 /lpf; RBC Urine 0-2 /hpf (0-2); Squamous Epithelial Cell Urine 0-5 /hpf (0-5); WBC Urine 0-5 /hpf (0-5)
[2024-09-11 18:07] LABS: Amphetamines Screen Urine Negative (Negative); Barbiturates Screen Urine Negative (Negative); Benzodiazepines Screen Urine Negative (Negative); Cocaine Screen Urine Negative (Negative); Opiate Screen Urine Negative (Negative); PCP Screen Urine Negative (Negative); THC Screen Urine Negative (Negative)
[2024-09-11 18:40] LABS: Influenza A NEGATIVE (Negative); Influenza B NEGATIVE (Negative); Respiratory Syncytial Virus Ce NEGATIVE (Negative); SARS-CoV-2 PCR NEGATIVE (Negative)
[2024-09-11 19:15] VITALS: BP 151/82; PULSE 90; O2SAT 95
--- NOTE | 2024-09-11 19:23 | PC.NURSE ---
96 hr hold reviewed with pt @3630 with assistance of [facility] aboriginal liaison officer Rio Armando. All education reviewed with pt at this time. No verbalized concerns Pt copy left with pt @bedside. Pt declined a drink or snack when offered. No further needs
[2024-09-11 20:39] VITALS: BP 151/82; PULSE 90; O2SAT 95
[2024-09-11 20:40] VITALS: BP 168/104; PULSE 95; RESP 20; TEMP 36.4; O2SAT 97
[2024-09-12 00:08] VITALS: BP 156/92; PULSE 93; RESP 18; TEMP 36.6; O2SAT 96
[2024-09-12 03:55] VITALS: BP 155/96; PULSE 83; RESP 18; TEMP 36.9; O2SAT 98
[2024-09-12 08:00] VITALS: BP 165/96; PULSE 95; RESP 18; TEMP 36.8; O2SAT 96
[2024-09-12] MEDS: folic acid 1 mg Tablet PO (08:25)
[2024-09-12] MEDS: thiamine 100 mg Tablet PO (08:25)
[2024-09-12] MEDS: multivitamin therapeutic Tablet 1 TAB PO (08:25)
[2024-09-12 12:00] VITALS: BP 164/96; PULSE 95; RESP 17; TEMP 36.6; O2SAT 94
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
[2024-09-12 16:00] VITALS: BP 144/100; PULSE 86; RESP 17; O2SAT 96
[2024-09-12 20:00] VITALS: BP 165/95; PULSE 97; RESP 18; TEMP 36.7; O2SAT 96
[2024-09-13] VITALS (7 sets, daily range): BP systolic 137–156; BP diastolic 92–100; PULSE 72–98; RESP 16–18; TEMP 36.6–36.9; O2SAT 95–98
[2024-09-13] MEDS: folic acid 1 mg Tablet PO (07:57)
[2024-09-13] MEDS: thiamine 100 mg Tablet PO (07:57)
[2024-09-13] MEDS: multivitamin therapeutic Tablet 1 TAB PO (07:57)
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
[2024-09-14 04:00] VITALS: BP 144/94; PULSE 97; RESP 18; TEMP 36.4; O2SAT 97
[2024-09-14] MEDS: multivitamin therapeutic Tablet 1 TAB PO (08:22)
[2024-09-14] MEDS: folic acid 1 mg Tablet PO (08:22)
[2024-09-14] MEDS: thiamine 100 mg Tablet PO (08:22)
--- NOTE | 2024-09-14 11:40 | P.NPUDS_ITS ---
Diagnoses at Discharge Discharge Diagnosis (1) Suicidal ideation: Status: Resolved (2) Parent-child relational problem: Status: Acute (3) Adjustment disorder with mixed disturbance of emotions and conduct: Status: Acute (4) Generalized anxiety disorder: Status: Acute Reason for Visit Reason for Visit: fell, hit head, dizzy, confusion Involuntary Hold Information Hold Status: Legal Status: 96 Hour Hold Date/Time Hold Expires: 09/18/2024 @ 1340 Discharge Data Studies Completed and Pending: Completed Studies During Hospitalization Category Date Time Status CT cervical spin wo con* [id number] Stat Cat Scan 09/11/24 12:[address] head wo con* [id number] Stat Cat Scan 09/11/24 12:24 Completed Radiology Impressions Cervical Spine CT 09/11/24 12:23 IMPRESSION: 1. No acute bony abnormality. If sympt oms persist, consider further evaluation with MRI, if there are no contraindications to obtaining a MRI scan. 2. Asymmetric appearance of the pirifo rm sinuses with relative effacement of the left side. Underlying mucosal lesion cannot be excluded. Recommend correlation with direct visualization. Head CT 09/11/24 12:24 IMPRESSION: No acute intracranial abnormality. If symptoms persist, consider further evaluation with MRI, if there are no contraindications to obtaining a MRI scan. Laboratory Results WBC 6.17 10^3/uL (3.2 9-11.43) 09/11/24 14:33 RBC 4.76 10^6/uL (3.8 5-5.65) 09/11/24 14:33 Hgb 15.00 g/dL (11.27 -16.99) 09/11/24 14:33 Hct 43.2 % (37-53) 09/11/24 14:33 MCV 90.8 fl (82-101) 09/11/24 14:33 MCH 31.5 pg (27-33) 09/11/24 14:33 MCHC 34.7 g/dL (30-55) 09/11/24 14:33 RDW 12.3 % (12.1-15.1 ) 09/11/24 14:33 Plt Count 209 10^3/cmm (157 -399) 09/11/24 14:33 MPV 10.0 fL (7.4-10.4 ) 09/11/24 14:33 Neut % (Auto) 56.6 % 09/11/24 14:33 Lymph % (Auto) 31.4 % 09/11/24 14:33 [place] % (Auto) 8.9 % 09/11/24 14:33 Eos % (Auto) 1.5 % 09/11/24 14:33 Baso % (Auto) 1.1 % 09/11/24 14:33 Neut # (Auto) 3.49 10^3/uL (1.8 -7.7) 09/11/24 14:33 Lymph # (Auto) 1.9 10^3/uL (0.8- 4.8) 09/11/24 14:33 [place] # (Auto) 0.6 10^3/uL (0.2- 0.9) 09/11/24 14:33 Eos # (Auto) 0.1 10^3/uL (0.0- 0.8) 09/11/24 14:33 Baso # (Auto) 0.1 10^3/uL (0.0- 0.1) 09/11/24 14:33 Nucleated RBC % (a uto) 0 % 09/11/24 14:33 Nucleated RBCs # 0.0 /100WBC 09/11/24 14:33 Sodium 133 mmol/L (136-1 45) L 09/11/24 14:33 Potassium 4.6 mmol/L (3.5-5 .1) 09/11/24 14:33 Chloride 95 mmol/L (98-107 ) L 09/11/24 14:33 Carbon Dioxide 22 mmol/L (22-29) 09/11/24 14:33 Anion Gap 20.6 (5-19) H 09/11/24 14:33 BUN 13 mg/dL (6-20) 09/11/24 14:33 Creatinine 0.8 mg/dL (0.7-1. 2) 09/11/24 14:33 GFR Calculation 102.7 mL/min (90- 130) 09/11/24 14:33 Glucose 319 mg/dL (65-115 ) H 09/11/24 14:33 Calculated Osmolal ity 288 mOsm/kg (285- 295) 09/11/24 14:33 Calcium 9.7 mg/dL (8.5-10 .5) 09/11/24 14:33 Total Bilirubin 0.5 mg/dL (0.15-1 .2) 09/11/24 14:33 AST 39 U/L (0-40) 09/11/24 14:33 ALT 34 U/L (0-41) 09/11/24 14:33 Alkaline Phosphata se 75 U/L (40-130) 09/11/24 14:33 Total Protein 7.6 g/dL (6.6-8.7 ) 09/11/24 14:33 Albumin 4.1 g/dL (3.5-5.2 ) 09/11/24 14:33 Globulin 3.5 g/dL (1.3-4.6 ) 09/11/24 14:33 Urine Color Yellow (Yellow) 09/11/24 17:51 Urine Appearance Clear (CLEAR) 09/11/24 17:51 Urine pH 7.0 (5-7) 09/11/24 17:51 Ur Specific Gravit y 1.009 (1.005-1.0 30) 09/11/24 17:51 Urine Protein Negative (Negati ve) 09/11/24 17:51 Urine Glucose (UA) 3+ (Normal) H 09/11/24 17:51 Urine Ketones 1+ (Negative) H 09/11/24 17:51 Urine Blood Negative (Negati ve) 09/11/24 17:51 Urine Nitrate Negative (Negati ve) 09/11/24 17:51 Urine Bilirubin Negative (Negati ve) 09/11/24 17:51 Urine Urobilinogen 0.2 mg/dL (Negati ve) 09/11/24 17:51 Ur Leukocyte Michelle ase Negative (Negati ve) 09/11/24 17:51 Urine RBC 0-2 /hpf (0-2) 09/11/24 17:51 Urine WBC 0-5 /hpf (0-5) 09/11/24 17:51 Ur Squamous Epith Cells 0-5 /hpf (0-5) 09/11/24 17:51 Amorphous Sediment Not Reportable 09/11/24 17:51 Urine Bacteria None seen /hpf (N ONE) 09/11/24 17:51 Hyaline Casts 0-4 /lpf H 09/11/24 17:51 Salicylates < 0.3 mg/dL (3-10 ) L 09/11/24 14:33 Urine Opiates Scre en Negative ng/mL (N egative) 09/11/24 17:51 Acetaminophen < 5.0 ug/mL (10-3 0) L 09/11/24 14:33 Ur Barbiturates Sc reen Negative ng/mL (N egative) 09/11/24 17:51 Ur Phencyclidine S crn Negative ng/mL (N egative) 09/11/24 17:51 Ur Amphetamines Sc reen Negative ng/mL (N egative) 09/11/24 17:51 U Benzodiazepines Scrn Negative ng/mL (N egative) 09/11/24 17:51 Urine Cocaine Scre en Negative ng/mL (N egative) 09/11/24 17:51 U Marijuana (THC) Screen Negative ng/mL (N egative) 09/11/24 17:51 Ethyl Alcohol < 10 mg/dL (0-10) 09/11/24 14:33 Influenza A (PCR) Negative (Negati ve) 09/11/24 17:51 Influenza Type B ( PCR) Negative (Negati ve) 09/11/24 17:51 RSV (PCR) Negative (Negati ve) 09/11/24 17:51 SARS-CoV-2 (PCR) Negative (Negati ve) 09/11/24 17:51 Vitals: Last Vital Signs Temp 97.6 F 09/14/24 04:00 Pulse 97 09/14/24 04:00 Resp 18 09/14/24 04:00 BP 144/94 09/14/24 04:00 Pulse Ox 97 09/14/24 04:00 O2 Del Method Room Air 09/13/24 15:28 Discharge Plan Discharge Patient Disposition: Home Condition: Stable Prescriptions: New lisinopril 10 mg Tablet 10 mg PO DAILY 30 Days Qty: 30 1RF thiamine mononitrate (vit B1) [Vitamin B-1 (mononitrate)] 100 mg Tablet 30 mg PO DAILY Qty: 30 1RF Continued diclofenac sodium 3 % gel 1 applic topical BID PRN (Reason: muscle pain, tension) Qty: 100 0RF Rx Instructions: rub in well diclofenac sodium 50 mg tablet,delayed release (DR/EC) 50 mg PO BID Qty: 14 0RF Rx Instructions: take with food diphenhydramine-acetaminophen [Tylenol PM Extra Strength] 25-500 mg Tablet 1 tab PO Q4H PRN (Reason: Sleep) Rx Instructions: administer while awake methocarbamol 750 mg tablet 750 mg PO TID PRN (Reason: Muscle Spasm) Discharge Orders: Discharge Order (Routine); Ordered 09/14/24 Ordered By: Luis Bustamante Referrals: Teodora Bustamante NP [Primary Care Provider, [facility]] - 09/20/24 10:30 am Referral Note: Hosptial discharge Discharge Diet: Regular Discharge Activity: Resume usual activity Patient Instructions: Opioid Safety Coding Level of Care Code Acute Code for Chg Fwd Diagnoses Suicidal ideation R45.851 Parent-child relational problem Z62.820 Adjustment disorder with mixed disturbance of emotions and conduct F43.25 Generalized anxiety disorder F41.1
[2024-09-14 11:43] VITALS: BP 144/94; PULSE 97; RESP 18; TEMP 36.4; O2SAT 97
[2024-09-14] MEDS: lisinopril 10 mg Tablet PO (11:52)
== END 2024-09-14 12:55 | disposition home or self-care (01) | DRG 882 ==
LOC: ER 18:44 → NP 20:33
PROVIDERS: Family Medicine; Admitting Provider Psychiatry & Neurology Psychiatry; Emergency Provider General Practice; Visit Provider Psychiatry & Neurology Psychiatry
DX: F43.25 Adjustment disorder with mixed disturbance of emotions and conduct (principal); F41.1 Generalized anxiety disorder; W01.10XA Fall on same level from slipping, tripping and stumbling with subsequent striking against unspecified object, initial encounter; S09.90XA Unspecified injury of head, initial encounter; R42 Dizziness and giddiness; R25.1 Tremor, unspecified; R45.1 Restlessness and agitation; E66.9 Obesity, unspecified; Z68.35 Body mass index [BMI] 35.0-35.9, adult; Z81.8 Family history of other mental and behavioral disorders
CPT/HCPCS: 36415; 70450; 72125; 80053; 80306; 80307; 81001; 85025; 87637; 97165; 99285; J9999

== ENCOUNTER 2025-03-24 19:16 | Emergency (ER) | payer SELFPAY ==
[2025-03-24 19:30] VITALS: BP 181/120; PULSE 102; TEMP 36.7; O2SAT 98
--- NOTE | 2025-03-24 20:07 | XRR_ITS ---
PROCEDURE INFORMATION: Exam: XR Left Shoulder Exam date and time: 03/24/2025 8:09 PM Age: 49 years old Clinical indication: Fall TECHNIQUE: Imaging protocol: Radiologic exam of the left shoulder. Views: 2 or more views. COMPARISON: CT cervical spin wo con* [id number] 09/11/2024 12:43 PM FINDINGS: Bones/joints: No acute fracture. The humeral head appears slightly superiorly subluxed relative to the glenoid. Soft tissues: Normal. XR/XR shoulder LT min 2V* [id number] IMPRESSION: No acute fracture. There is slight superior subluxation of the humeral head relative to the glenoid.
--- NOTE | 2025-03-24 20:07 | XRR_ITS ---
PROCEDURE INFORMATION: Exam: XR Left Knee Exam date and time: 03/24/2025 8:09 PM Age: 49 years old Clinical indication: Fall TECHNIQUE: Imaging protocol: Radiologic exam of the left knee. Views: 3 views. COMPARISON: CR XR foot LT min 3V* [id number] 07/24/2022 12:37 PM FINDINGS: Bones/joints: Small ossific density at the anterior aspect of the patella which may represent a patellar enthesophyte versus small avulsion fracture. Normal joint alignment. No large joint effusion. Soft tissues: Normal. XR/XR knee LT 3V* [id number] IMPRESSION: Small ossific density at the anterior aspect of the patella which may represent an enthesophyte versus small avulsion fracture. Recommend correlation with point tenderness.
--- NOTE | 2025-03-24 20:39 | XRR_ITS ---
PROCEDURE INFORMATION: Exam: XR Left Knee Exam date and time: 03/24/2025 8:43 PM Age: 49 years old Clinical indication: [place] view of lt knee TECHNIQUE: Imaging protocol: Radiologic exam of the left knee. Views: 1 or 2 views. COMPARISON: CR (LOW EXM, ) 03/24/2025 8:09 PM FINDINGS: Bones/joints: Unremarkable sunrise view of the knee. No evidence of fracture. Soft tissues: Normal. XR/XR knee LT 1-2V [id number] IMPRESSION: Unremarkable sunrise view of the knee.
[2025-03-24 20:51] VITALS: BP 154/107; PULSE 102
[2025-03-24 21:20] VITALS: BP 159/100; PULSE 102; RESP 20; O2SAT 96
--- NOTE | 2025-03-25 06:47 | W.ED.EXTPRO ---
HPI - Extremity Problem General: Chief complaint: Extremity Injury, Lower Stated complaint: Left Knee Pain History of Present Illness: 49-year-old male presents emergency room complaining of left shoulder and left knee pain. 2 days ago he fell when he slipped and parking lot. He fell forward he has hands in his pockets at the time was unable to break his fall he landed on his left side initially hitting his knee. A family member who was with him and tried to grab him to support him as he went down and he hurt his shoulder as well. He has been able to ambulate since then but he has progressively worsening posterior left knee pain without swelling. He had no repeat injury. He is also complaining of some pain in his left shoulder although he initially downplays it when exam and found that he had significantly more pain and loss of range of motion than he realized. He denies striking his head denies any loss consciousness, denies neck pain Associated symptoms: Deny chest pain Related Data Home Medications ?Medication ?Instructions ?Recorded ?Confirmed diphenhydramine 25 1 tab PO Q4H PRN Sleep 09/11/24 09/12/24 mg-acetaminophen 500 mg tablet (Tylenol PM Extra Strength) methocarbamol 750 mg tablet 750 mg PO TID PRN Muscle Spasm 09/11/24 09/12/24 Previous Rx's ?Medication ?Instructions ?Recorded diclofenac sodium 3 % topical gel 1 applic topical BID PRN muscle 05/13/24 Held on 03/25/25. pain, tension #100 grams Instructions: Resume on 04/03/25. diclofenac sodium 50 mg 50 mg PO BID pain #14 tabs 05/13/24 tablet,delayed release Held on 03/25/25. Instructions: Resume on 04/02/25. lisinopril 10 mg tablet 10 mg PO DAILY 30 days #30 tabs 09/14/24 thiamine mononitrate (vit B1) 100 30 mg (0.3 x 100 mg) PO DAILY #30 09/14/24 mg tablet (Vitamin B-1 tabs (mononitrate)) diclofenac sodium 75 mg 75 mg PO Q12H PRN pain #20 tabs 03/25/25 tablet,delayed release Allergies Allergy/AdvReac Type Severity Reaction Status Date / Time No Known Allergies Allergy Verified 03/24/25 20:51 Review of Systems Card: Denies: chest pain Resp: Denies: dyspnea GI: Denies: abdominal pain Musc: Reports: joint pain and limited range of motion; Denies: neck pain, back pain, extremity swelling or joint redness PFSH ED PFSH: Medical History No pertinent past medical history Social History Smoking and tobacco/nicotine status: unknown if used tobacco/nicotine Alcohol intake: unknown Physical Exam Const: COMMON NORMALS: no acute distress GENERAL APPEARANCE: cooperative and comfortable ORIENTATION/CONSCIOUSNESS: Yes awake, Yes oriented to person, Yes oriented to place and Yes oriented to time HENMT: COMMON NORMALS: normocephalic, atraumatic and hearing grossly normal bilaterally HEAD & SCALP: normocephalic and atraumatic Resp: COMMON NORMALS: normal respiratory effort, No retractions, No use of accessory muscles and clear to auscultation bilaterally AUSCULTATION: clear to auscultation bilaterally Cardio: COMMON NORMALS: regular rate, regular rhythm and No murmurs present (Cardio) RATE: regular rate RHYTHM: regular rhythm Extremity: OTHER: Examination of the left knee no ligamentous instability or laxity's. Moderate discomfort with attempts to fully extend. Pain is mostly in the posterior lateral popliteal fossa. There is no swelling no joint effusion no pain with manipulation of the patella. No point tenderness over the patella. Examination of the left shoulder poor abduction with pain as range of motion approaches 90 degrees. Positive impingement sign with external rotation. No deformity. Neuro: SENSORIUM/ORIENTATION: Yes oriented to person, Yes oriented to place and Yes oriented to time Skin: COMMON NORMALS: no rashes or lesions noted GENERAL SKIN EXAM: no rashes or lesions noted Course Vital Signs: Vital signs: Vital Signs Temperature 98.1 F 03/24/25 19:30 Pulse Rate 102 H 03/24/25 21:20 Respiratory Rate 20 H 03/24/25 21:20 Blood Pressure 159/100 03/24/25 21:20 Pulse Oximetry 96 03/24/25 21:20 Oxygen Delivery Me thod Room Air 03/24/25 19:30 MDM - Extremity (Nontraumatic) Medical Decision Making Medical decision making Social determinants: None I reviewed the patient's medical record. I reviewed the patient's current home meds> Alternate historians: None Differential diagnosis: Medial/lateral collateral ligament injury. Cruciate inguinal ligament injury. Fracture of the knee joint. Patellar fracture. Hemarthrosis. Traumatic joint effusion. Lab Review: None Imaging: Review of left shoulder x-ray AC joint appears normal there is no dislocation there is no fracture. Superior subluxation of the humerus at the shoulder joint. Examination of the left knee imaging no acute fracture sunrise view normal. Assessment of risk Level of risk: Low Hospitalization considerations: No indication or consideration for hospital and mission Reexamination: On repeat exam after x-rays was able to stress the joints more once fractures had been eliminated as potential cause of pain. Patient does have positive impingement signs suspect he has a rotator cuff injury in the left shoulder. No ligamentous instability or laxity at the knee. Assessment and plan: Patient already has been weightbearing for several days of his accident suspect he has some soft tissue injury to the knee there is not appear to be any joint instability or laxity. Radiology read mentions possible avulsion fracture of the patella but he does not have pain over that area. Will refer him to Ortho discharge home with diclofenac. If symptoms persist may require advanced imaging. Please note the patient was seen during EMR downtime. Notes were taken in the electronic record completed at a later time once the downtime had been resolved. Prescription was given to the patient hand written. Discharge instructions were reviewed with the patient verbally. Patient acknowledged understanding of diagnosis follow-up and medications. Lab Data Radiology Impressions Shoulder X-Ray 03/24/25 20:07 IMPRESSION: No acute fracture. There is slight superior subluxation of the humeral head relative to the glenoid. Knee X-Ray 03/24/25 20:39 IMPRESSION: Unremarkable sunrise view of the knee. All radiology interpretation(s) finalized by discharge Discharge Plan Discharge Patient Disposition: Home Clinical Impression: Left knee sprain, Injury of left rotator cuff Prescriptions: New diclofenac sodium 75 mg tablet,delayed release (DR/EC) 75 mg PO Q12H PRN (Reason: pain) Qty: 20 0RF Held diclofenac sodium 3 % gel 1 applic topical BID PRN (Reason: muscle pain, tension) Qty: 100 0RF Hold Instructions: Resume on 04/03/25. Rx Instructions: rub in well diclofenac sodium 50 mg tablet,delayed release (DR/EC) 50 mg PO BID Qty: 14 0RF Hold Instructions: Resume on 04/02/25. Rx Instructions: take with food No Action diphenhydramine-acetaminophen [Tylenol PM Extra Strength] 25-500 mg Tablet 1 tab PO Q4H PRN (Reason: Sleep) Rx Instructions: administer while awake methocarbamol 750 mg tablet 750 mg PO TID PRN (Reason: Muscle Spasm) lisinopril 10 mg Tablet 10 mg PO DAILY 30 Days Qty: 30 1RF thiamine mononitrate (vit B1) [Vitamin B-1 (mononitrate)] 100 mg Tablet 30 mg PO DAILY Qty: 30 1RF Discharge Orders: Discharge ED (Routine); Ordered 03/24/25 Ordered By: Bertram Bryan Referrals: Teodora Bustamante NP [Primary Care Provider, Family Practice] Patient Instructions: Opioid Safety, Pain Management, Patient Portal & [facility] Instructions Print Language: Maltese Coding Level of Care Code ED 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
== END 2025-03-24 21:22 | disposition home or self-care (01) ==
PROVIDERS: Emergency Provider Family Medicine
DX: S83.92XA Sprain of unspecified site of left knee, initial encounter (principal); S46.002A Unspecified injury of muscle(s) and tendon(s) of the rotator cuff of left shoulder, initial encounter; W01.0XXA Fall on same level from slipping, tripping and stumbling without subsequent striking against object, initial encounter
CPT/HCPCS: 73030; 73560; 73562; 99284